=== PATIENT | female | born 1970 | race Two or more races ===

== ENCOUNTER 2020-10-12 09:11 | Emergency (ER) | payer BC, OTHER ==
[~2020-10-12] VITALS: Ht 139.7 cm; Wt 56.2 kg
[2020-10-12 09:31] VITALS: BP 123/78
== END 2020-10-12 10:37 | disposition home or self-care (01) ==
LOC: ER 09:11
DX: M79.674 Pain in right toe(s) (principal); Z88.1 Allergy status to other antibiotic agents; Z88.0 Allergy status to penicillin; Z98.890 Other specified postprocedural states; Z90.710 Acquired absence of both cervix and uterus